=== PATIENT | female | born 1990 | race Caucasian/White ===

== ENCOUNTER → 2018-09-16 15:45 | Outpatient (CLI) | payer MEDICAID | END | disposition home or self-care (01) | LOC: D.LABREF 15:45 | DX: R31.9 Hematuria, unspecified (principal); D72.829 Elevated white blood cell count, unspecified ==

== ENCOUNTER → 2018-12-01 12:34 | Outpatient (CLI) | payer BC | END | disposition home or self-care (01) | LOC: D.LABREF 12:34 | DX: L98.8 Other specified disorders of the skin and subcutaneous tissue (principal) ==

== ENCOUNTER 2019-01-08 09:27 | Day surgery (SDC) | payer BC ==
[~2019-01-08] VITALS: Ht 154.9 cm; Wt 56.7 kg
[2019-01-08] MEDS ORDERED: BYSTOLIC5 MG PO (10:11)
[2019-01-08] MEDS ORDERED: CARDIZEM30 MG PO (10:12)
[2019-01-08] MEDS ORDERED: UNISOM SLEEP AI25 MG PO (10:13)
[2019-01-08 10:14] LABS: HEMATOCRIT 38.5 % (36.0-48.0); HEMOGLOBIN 13.2 g/dL (12-16); LYMPHOCYTES 16.2 % (15-50); MCH 30.7 pg (26.0-34.0); MCHC 34.3 g/dL (31.0-37.0); MCV 89.5 fL (80.0-100.0); MEAN PLATELET VOLUME 9.6 fL (7.4-10.4); NEUTROPHILS 77.6 % (40-80); PLATELET COUNT 309 10x3/uL (130-400); RDW 14.9 % (11.5-14.5); WBC 6.6 10x3/uL (4.8-10.8)
[2019-01-08 10:23] VITALS: BP 112/72; Ht 154.9 cm; Wt 56.7 kg
--- NOTE | 2019-01-09 12:24 | OP ---
PATIENT NAME: BERTRAM JAIME MEDICAL RECORD: [id number] LOCATION:[facility] ADMISSION DATE: SURGEON: CORTNEY ZALDIVAR MD DATE OF OPERATION: 01/08/2019 PREOPERATIVE DIAGNOSIS: Inevitable . POSTOPERATIVE DIAGNOSIS: Inevitable . PROCEDURE: Dilation and evacuation with sharp curettage. SURGEON: Cortney Zaldivar MD ANESTHESIOLOGIST: Dr. Lo ANESTHETIC: General. FINDINGS: Uterus is enlarged, approximately 9-10 weeks. There is moderate amount of products of conception at the time of evacuation. Good cry obtained throughout. SPECIMEN: Products of conception. SPECIMEN DISPOSITION: Pathology. ESTIMATED BLOOD LOSS: Less than or equal to 75 cc. FLUIDS: 500 cc lactated Ringer's. URINE OUTPUT: Quantity sufficient void prior to this procedure. COMPLICATIONS: None. DRAINS: None. INDICATIONS: The patient is a 28-year-old female with known intrauterine with no cardiac activity and a crown rump measuring approximately 7 weeks. The patient is consented for dilation and evacuation. DESCRIPTION OF PROCEDURE: After informed consent was assured, the patient was taken to the operating room where anesthetic was obtained. The patient was placed in stirrups and prepped and draped. Speculum was introduced in the vagina and the cervix grasped with a single tooth tenaculum. The cervix was found to be dilated and easily accommodated a #20 Hanks dilator. The #8 curved suction curette was passed gently to the fundus and the suction activated to approximately 70 mmHg. Products of conceptions were removed on several passes. A curettage with a #3 curette at the close of this procedure removed all remaining clot and debris from the uterine lining. A single pass with suction device removed this. Sponge, lap and needle count was correct times 2. The speculum was removed and the patient was awakened and went to the recovery room in stable condition. TRANSINT:[id number] Voice Confirmation ID: [id number] DOCUMENT ID: [id number] OPERATIVE REPORT [id number] JESUS JAIMECORTNEY LIPSCOMB MD at 1224 CC: [id number] DICTATION DATE: 01/08/19 1135 RN PERITONEAL DIALYSIS: 01/08/19 1144 [facility] 01/08/19 [place] [address]
== END 2019-01-08 12:15 | disposition home or self-care (01) ==
LOC: D.OPS 09:27
PROVIDERS: ATTEND Obstetrics & Gynecology
DX: O02.1 Missed abortion (principal); Z01.812 Encounter for preprocedural laboratory examination